=== PATIENT | male | born 1985 | race Caucasian/White ===

== ENCOUNTER 2017-03-17 01:45 | Emergency (ER) | payer OTHER ==
[~2017-03-17] VITALS: Ht 177.8 cm; Wt 100.0 kg
[2017-03-17 02:03] VITALS: BP 127/80; PULSE 128; RESP 24; TEMP 98.6; O2SAT 93
[2017-03-17] MEDS ORDERED: OLANZapine IM 10 MG VIAL IM ONE (02:15)
[2017-03-17 02:41] LABS: AUTOMATED NEUTROPHIL # 4.7 TH/MM3 (1.8-7.7); BASOPHIL % 0.4 % (0.0-2.0); EOSINOPHIL % 0.2 % (0.0-4.0); HEMATOCRIT 46.2 % (39.0-51.0); HEMO FLAGS DIFF FINAL; LYMPH % 44.6 % (9.0-44.0); LYMPHOCYTE # 4.1 TH/MM3 (1.0-4.8); MEAN CORPUSCULAR HEMOGLOBIN 31.5 PG (27.0-34.0); MEAN CORPUSCULAR HGB CONC 33.8 % (32.0-36.0); MONO % 4.2 % (0.0-8.0); NEUT % 50.6 % (16.0-70.0); PLATELET COUNT 344 TH/MM3 (150-450); RED BLOOD COUNT 4.97 MIL/MM3 (4.50-5.90); RED CELL DISTRIBUTION WIDTH 14.3 % (11.6-17.2); WHITE BLOOD COUNT 9.3 TH/MM3 (4.0-11.0)
[2017-03-17 02:42] LABS: AMPHETAMINE, URINE NEG (NEG); BARBITURATES, URINE NEG (NEG); COCAINE, URINE POS (NEG)
[2017-03-17 02:50] LABS: BICARBONATE 25.6 MEQ/L (21.0-32.0); POTASSIUM 4.5 MEQ/L (3.5-5.1)
--- NOTE | 2017-03-17 03:43 | PD ---
HPI Chief Complaint: Psychiatric Symptoms Time Seen by Provider: 03:41 Travel History International Travel<30 days: No Contact w/Intl Traveler<30days: No Traveled to known affect area: No History of Present Illness HPI 31-year-old male with no significant medical history presents to the emergency department under a Moore act for psychiatric evaluation. Patient is acutely intoxicated and psychotic when he comes into the emergency department. He is combative with staff and security. He is spitting and yelling derided statements. Situation that brought him here is unknown at this time. [facility] Past Medical History Anxiety: Yes Depression: Yes Diminished Hearing: No Psychiatric: Yes (cut hitchcock on the right forearm) Past Surgical History Oral Surgery: Yes (CLEFT PALATE SURGERIES X 3) Social History Alcohol Use: Yes Tobacco Use: Yes Substance Use: Yes Allergies-Medications (Allergen,Severity, Reaction): Coded Allergies: No Known Allergies (Unverified , 03/17/17) Reported Meds & Prescriptions Reported Meds & Active Scripts Active No Active Prescriptions or Reported Medications Review of Systems ROS Limitations: Intoxication, Uncooperative, Combative, Psychotic Physical Exam Exam Limitations: Intoxication, Uncooperative, Combative Narrative GENERAL: Unkempt male patient, acutely psychotic, difficult to assess SKIN: Focused skin assessment warm/dry. HEAD: Atraumatic. Normocephalic. EYES: Pupils equal and round. No scleral icterus. No injection or drainage. ENT: No nasal bleeding or discharge. Mucous membranes appear dry NECK: Trachea midline. No JVD. CARDIOVASCULAR: Tachycardic rate and rhythm. No murmur appreciated. RESPIRATORY: No accessory muscle use. Clear to auscultation. Breath sounds equal bilaterally. GASTROINTESTINAL: Abdomen soft, non-tender, nondistended. Hepatic and splenic margins not palpable. MUSCULOSKELETAL: No obvious deformities. No clubbing. No cyanosis. No edema. NEUROLOGICAL: Awake and alert. No obvious cranial nerve deficits. Motor grossly within normal limits. Normal speech. Data Data Last Documented VS Vital Signs Date Time Temp Pulse Resp B/P Pulse Ox O2 Delivery O2 Flow Rate FiO2 03/17/17 06:45 87 18 115/68 95 Room Air 03/17/17 02:03 98.6 Orders Complete Blood Count With Diff (03/17/17 02:03) Basic Metabolic Panel (Bmp) (03/17/17 02:03) Psych Screen (03/17/17 02:03) Drug Screen, Random Urine (03/17/17 02:03) Alcohol (Ethanol) (03/17/17 02:03) Olanzapine Inj (Zyprexa Inj) (03/17/17 02:15) Restraints Violent (03/17/17 02:04) Morphine Inj (Morphine Inj) (03/17/17 03:45) Lorazepam Inj (Ativan Inj) (03/17/17 03:45) Bladder Scan PRN (03/17/17 03:53) Sodium Chlor 0.9% 1000 Ml Inj (Ns 1000 M (03/17/17 05:00) Cefazolin 2 Gm Premix (Ancef 2 Gm Premix (03/17/17 05:00) Coag Profile (03/17/17 04:53) Consult Urology (03/17/17 ) (Hub Use Only)Inp Phy Cons/Ref (03/17/17 ) Diet Regular Basic (03/17/17 Breakfast) Labs Laboratory Tests Test 03/17/17 03/17/17 02:20 05:09 White Blood Count 9.3 TH/MM3 Red Blood Count 4.97 MIL/MM3 Hemoglobin 15.6 GM/DL Hematocrit 46.2 % Mean Corpuscular Volume 93.0 FL Mean Corpuscular Hemoglobin 31.5 PG Mean Corpuscular Hemoglobin 33.8 % Concent Red Cell Distribution Width 14.3 % Platelet Count 344 TH/MM3 Mean Platelet Volume 7.9 FL Neutrophils (%) (Auto) 50.6 % Lymphocytes (%) (Auto) 44.6 % Monocytes (%) (Auto) 4.2 % Eosinophils (%) (Auto) 0.2 % Basophils (%) (Auto) 0.4 % Neutrophils # (Auto) 4.7 TH/MM3 Lymphocytes # (Auto) 4.1 TH/MM3 Monocytes # (Auto) 0.4 TH/MM3 Eosinophils # (Auto) 0.0 TH/MM3 Basophils # (Auto) 0.0 TH/MM3 CBC Comment DIFF FINAL Differential Comment Sodium Level 143 MEQ/L Potassium Level 4.5 MEQ/L Chloride Level 109 MEQ/L Carbon Dioxide Level 25.6 MEQ/L Anion Gap 8 MEQ/L Blood Urea Nitrogen 4 MG/DL Creatinine 0.94 MG/DL Estimat Glomerular Filtration 94 ML/MIN Rate Random Glucose 106 MG/DL Calcium Level 9.1 MG/DL Urine Opiates Screen NEG Urine Barbiturates Screen NEG Urine Amphetamines Screen NEG Urine Benzodiazepines Screen NEG Urine Cocaine Screen POS Urine Cannabinoids Screen POS Ethyl Alcohol Level 247 MG/DL Prothrombin Time 11.3 SEC Prothromb Time International 1.0 RATIO Ratio Activated Partial 22.6 SEC Thromboplast Time MDM Medical Decision Making Medical Screen Exam Complete: Yes Emergency Medical Condition: Yes Medical Record Reviewed: Yes Differential Diagnosis Acute psychosis versus substance abuse versus intoxication versus mood disorder versus personality disorder Narrative Course 31-year-old male presents to emergency department for evaluation under a Moore act. Upon arrival, patient is acutely psychotic. He is given 10 mg of Zyprexa IM. Patient is combative with staff and a risk to harm himself and staff, violent restraints or place. [id number] exam completed at 0215 Patient demonstrates the need for violent restraints, demonstrating a risk of harming himself or others. Restraints are noted in place. Distal extremities remain neurovascularly intact. Removal criteria has been explained. 0330 I am informed by nursing staff that the patient had a Ramachandran placed despite not having an order and the patient has managed to grab it and pull it out however it is stuck and they are requesting my presents for further assessment. I go to find a Ramachandran catheter dislodged with a palpable balloon in the distal shaft. Balloon is unable to be deflated. The Ramachandran tube is cut and the balloon still will not deflate. The patient is an visible pain and discomfort. I went and spoke with my attending physician Dr. Espinoza who also came and evaluated the patient. She attempted to remove it but this is unsuccessful. A call was placed to urology. [address] Connolly, urologist [employer] executive. I have informed him of the situation. Patient is not voiding around it and bladder scan reveals only 100 mL's of urine in the bladder at this time. Will be in to evaluate the patient. patient has been given additional pain control. [address] Marcos about admission, but at this time we will wait for urology; pending care plan, pt may be more appropriate for med/psyche with a consult to medicine. 0700 Pt is signed out to [facility] Trevizo awaiting Dr. Connolly and further care plan. Pt is restful; arousable. VSS 0711 Dr. Connolly is in to see pt. He is able to deflate the balloon by needle aspiration and remove the ramachandran catheter. Pt tolerated this well. Dr. Connolly recommended allowing the pt to void regularly. He remains medically cleared for psychiatric evaluation. Diagnosis Primary Impression: Acute psychosis Additional Impression: Dislodged Ramachandran catheter Qualified Code: T83.021A - Dislodged Ramachandran catheter, initial encounter Scripts No Active Prescriptions or Reported Meds Condition: Stable Anita Hall March 17, 2017 03:43
[2017-03-17] MEDS ORDERED: MORPHINE SULFATE 4 MG/ML INJ IV PUSH ONE (03:45)
[2017-03-17] MEDS ORDERED: LORazepam 2 MG/ML VIAL IV PUSH ONE (03:45)
[2017-03-17 04:55] VITALS: BP 118/72; PULSE 98; RESP 16; O2SAT 96
[2017-03-17] MEDS ORDERED: SODIUM CHLOR 0.9% 1000 ML INJ 1,000 ML IV ONE (05:00)
[2017-03-17] MEDS ORDERED: ceFAZolin 2 GM PREMIX 50 ML IV ONE (05:00)
[2017-03-17 05:30] LABS: APTT (PATIENT) 22.6 SEC (24.3-30.1); PROTHROMBIN TIME - PATIENT 11.3 SEC (9.8-11.6)
[2017-03-17 05:45] VITALS: BP 121/72; PULSE 91; RESP 18; O2SAT 95
[2017-03-17 06:45] VITALS: BP 115/68; PULSE 87; RESP 18; O2SAT 95
--- NOTE | 2017-03-17 07:48 | MB ---
cc: SEBASTIAN DOCKERY MD DATE OF CONSULTATION 03/17/2017 I received a phone call about 03:30 this morning from the emergency room. Evidently, a gentleman had been brought in psychotic and a Che catheter was inserted for reasons that were not entirely made clear. The gentleman in "thrashing around" dislodge the catheter as it is partially extruded from his urethra. The call I received requested help in removing the catheter the rest of the way as it was entrapped in the gentleman's distal urethra. On arrival, the gentleman was restrained in his bed in the emergency room. PHYSICAL EXAM On physical exam, the bulb of the catheter feels as though it is trapped at the level of the fossa navicularis in the distal urethra and trapped by the urethral meatus. This is evidently in such a way that the channel that drains the balloon is occluded as well. I recommend that we try aspiration directly first and failing that, then we can have him brought to [facility] and have him ultrasonically guided aspiration of the balloon. MD ARTHUR Hatch/CURRY /7:16 AM /7:47 AM
[2017-03-17 10:39] VITALS: BP 130/80
--- NOTE | 2017-03-17 12:24 | MP ---
cc: SEBASTIAN DOCKERY MD DATE OF SURGERY 03/16/2017 PREOPERATIVE DIAGNOSIS Entrapped Che catheter. POSTOPERATIVE DIAGNOSIS Entrapped Che catheter. PROCEDURE PERFORMED Dislodgement of the Che catheter. SURGEON Sebastian Dockery MD ANESTHESIA Local NOTE IN DETAIL This gentleman was brought into the emergency room earlier this morning, psychotic, required restraint, had a Che catheter inserted. He partially dislodged it and it was trapped. The balloon was oblong shaped in the end of the gentleman's phallus of the urethra and cascading into the fossa navicularis. A 27-gauge needle was then used to aspirate the fluid through the corpora spongiosum. Once the balloon was deflated, then the catheter was easily removed from the distal meatus. The gentleman may have caused some disruption to his urethra, but it is not ecchymotic at the present time. I believe the corporal body near the corpus spongiosum is distensible sufficiently with this 10 cc balloon to have not caused too much damage in the area of the bulb and coming down through the prostatic urethra. He is very psychotic at the moment. He is requiring restraints. I think we are just best off leaving him alone and when it comes time urinate, we will see how he does as he "jesus up" and then we can do additional testing if it is indicated, but if he is voiding well on his own, we will leave him alone. MD ARTHUR Hatch/LEENAL /7:19 AM /12:19 PM
--- NOTE | 2017-03-17 15:07 | PD.CONS ---
Provisional Diagnosis Admission Date [place] I. Polysubstance dependence, including cocaine, cannabis and alcohol [place] II. Deferred [place] III. Significant medical medical history History of Present Illness Service Psychiatry Consult Requested By Primary Care Physician No Primary Care Physician HPI The patient is a 31-year-old man, domicile with his brother and father , employed, single, without any previous psychiatric history, no previous psychiatric hospitalizations, no previous suicidal attempts, substance dependence, including cannabis, cocaine and alcohol. No significant medical history. Who was brought to the ER under Moore act, intoxicated due to EDP. Patient is evaluated in the ER, he is now clinically sober, patient says that last night he was very drunk. When he came to the ER he was agitated and belligerent, needing ETO's. But now is calm, cooperative. He denies depressive symptoms, he denies anxiety, he denies christie, psychosis. He denies suicidal or homicidal ideation, he denies visual and auditory hallucinations. Patient is oriented 3, no attention deficit, no cognitive impairment. He reports daily use of alcohol and cannabis, occasional use of cocaine. Review of Systems Constitutional: DENIES: Diaphoretic episodes, Fatigue, Fever, Weight gain, Weight loss, Chills, Dizziness, Change in appetite, Night Sweats Endocrine: DENIES: Heat/cold intolerance, Polydipsia, Polyuria, Polyphagia Eyes: DENIES: Blurred vision, Diplopia, Eye inflammation, Eye pain, Vision loss , Photosensitivity, Double Vision Ears, nose, mouth, throat: DENIES: Tinnitus, Hearing loss, Vertigo, Nasal discharge, Oral lesions, Throat pain, Hoarseness, Ear Pain, Running Nose, Epistaxis, Sinus Pain, Toothache, Odynophagia Respiratory: DENIES: Apneas, Cough, Snoring, Wheezing, Hemoptysis, Sputum production, Shortness of breath Cardiovascular: DENIES: Chest pain, Palpitations, Syncope, Dyspnea on Exertion , PND, Lower Extremity Edema, Orthopnea, Claudication Gastrointestinal: DENIES: Abdominal pain, Black stools, Bloody stools, Constipation, Diarrhea, Nausea, Vomiting, Difficulty Swallowing, Anorexia Genitourinary: DENIES: Sexual dysfunction, Urinary frequency, Urinary incontinence, Urgency, Hematuria, Dysuria, Nocturia, Penile Discharge, Testicular Pain, Testicular Swelling Musculoskeletal: DENIES: Joint pain, Muscle aches, Stiffness, Joint Swelling, Back pain, Neck pain Integumentary: DENIES: Abnormal pigmentation, Nail changes, Pruritus, Rash Hematologic/lymphatic: DENIES: Bruising, Lymphadenopathy Immunologic/allergic: DENIES: Eczema, Urticaria Neurologic: DENIES: Abnormal gait, Headache, Localized weakness, Paresthesias, Seizures, Speech Problems, Tremor, Poor Balance Psychiatric: DENIES: Anxiety, Confusion, Mood changes, Depression, Hallucinations, Agitation, Suicidal Ideation, Homicidal Ideation, Delusions Past Family Social History Coded Allergies: No Known Allergies (Unverified , 03/17/17) No Active Prescriptions or Reported Meds Family History Patient denies psychiatric family history Social History Patient was born and raised in [place], he lives with his brother and father in [facility], he is employed as a bond trader, single, highest level of education is high school Patient's Strengths (min. 2) Family support Physical Exam On physical exam, patient is hyperactive, but no tremors, no withdrawal, no EPS present Vital Signs Vital Signs Date Time Temp Pulse Resp B/P Pulse Ox O2 Delivery O2 Flow Rate FiO2 03/17/17 10:39 80 17 130/80 98 03/17/17 06:45 Room Air 03/17/17 02:03 98.6 Lab Results BAL 247, toxicology positive for cannabis and cocaine Mental Status Examination Appearance young man, [facility], age appearing, calm and cooperative Speech: Unremarkable Orientation: x3 Memory: Unremarkable Thought Process: Logical Thought Content: Unremarkable Language Fluid and spontaneous Fund of Knowledge Adequate for level of education Hallucination Type: None Attention and Concentration: Good Suicidal Ideation: No Previous Suicide Attempts: No Homicidal Ideation: No Previous Homicide Attempts: No Judgment: WNL Affect: Good Mood: Appropriate Motor Activity: Normal gait Assessment & Plan Problem List: (1) Substance induced mood disorder Assessment & Plan: On psychiatric evaluation today patient does not present any evidence of depression, anxiety, christie or psychosis. Patient doesn't present agitation, aggressive behavior, paranoia or delusions. He is logical, coherent and relevant. I suicidal and homicidal ideation, he denies visual and auditory hallucinations. Patient does not meet criteria for psychiatric admission at this moment. Support and motivation provided. Moore act will be lifted. ICD Code: F19.94 Assessment & Plan Estimated LOS: Markos Pickens MD March 17, 2017 15:07
== END 2017-03-17 11:03 | disposition home or self-care (01) ==
LOC: NEPD 01:45
DX: F23 Brief psychotic disorder (principal); T83.018A Breakdown (mechanical) of other urinary catheter, initial encounter; F19.94 Other psychoactive substance use, unspecified with psychoactive substance-induced mood disorder; F19.90 Other psychoactive substance use, unspecified, uncomplicated; F41.9 Anxiety disorder, unspecified; Z72.0 Tobacco use
CPT/HCPCS: 80048; 80307; 85025; 85610; 85730; 96361; 96372; 96374; 96375; 99285; J0690; J2060; J2270; J7030